=== PATIENT | female | born 1935 | race Two or more races ===

== ENCOUNTER 2024-02-13 07:55 | Day surgery (SDC) | payer MEDICARE, OTHER ==
[~2024-02-13] VITALS: Ht 154.9 cm; Wt 74.8 kg
[~2024-02-13 07:55] MED LIST: ACE650RS PO; CHOL20007 PO; COEN300C2 PO; DOCU100T7 PO; LACTCAP35 OR; METO25TA5 PO; ROSU10TA16 PO
[2024-02-13] MEDS: fentaNYL CITRATE 100 MCG/2 ML VL IV ONE (09:00)
[2024-02-13] MEDS: MIDAZOLAM HCL 2MG/2ML 2ml VIAL (1mg/ml) IV ONE (09:00)
[2024-02-13] MEDS: LIDOCAINE VISCOUS 2% 15ML UD PO ONE (09:00)
[2024-02-13 09:10] VITALS: BP 155/77; PULSE 64; RESP 12; O2SAT 99
[2024-02-13 09:25] VITALS: BP 152/72; PULSE 62; RESP 13; O2SAT 99
[2024-02-13 09:40] VITALS: BP 154/74; PULSE 60; RESP 12; O2SAT 99
[2024-02-13 09:55] VITALS: BP 154/74; PULSE 60; RESP 12; O2SAT 99
[2024-02-13 10:10] VITALS: BP 151/73; PULSE 64; RESP 17; O2SAT 94
== END 2024-02-13 10:26 | disposition home or self-care (01) ==
LOC: CATH 07:55
PROVIDERS: ATTEND Internal Medicine Cardiovascular Disease
DX: I35.0 Nonrheumatic aortic (valve) stenosis (principal); I34.0 Nonrheumatic mitral (valve) insufficiency; I10 Essential (primary) hypertension; E66.9 Obesity, unspecified; Z86.2 Personal history of diseases of the blood and blood-forming organs and certain disorders involving the immune mechanism; Z79.899 Other long term (current) drug therapy
CPT/HCPCS: 93312; 93325; J2250; J3010; J7040; 99152